=== PATIENT | female | born 1965 | race Caucasian/White ===

== ENCOUNTER → 2018-10-19 | Outpatient (CLI) | payer BC ==
[~2018-10-19] MED LIST: ACET325; ACET325 PO; AMOX500 PO; BENZ100A PO; CELE200 PO; CIPR500 PO; CVS CALCIUM 501 EAC2; DURACEF PO; ERGO50000; ESTR1 PO; ESTR2 PO; ESTROGEN-METHY1 EAC1 PO; ETAN50I SC; Estradiol2 MG PO; FLUT.05NI; Gummi Bear Mul1 EACH; Gummi Bear Mul1 EACH PO; HYDACE5 PO; HYOS.125 SL; IRON236 MG; LEVSOD150 PO; LORA1SY PO; MEGA BIOTIN10000 MCG; META800 PO; METR500 PO; OMEP40CA12 PO; ONDA4ODT MM; OXYACE5T PO; POTCHL20ER; PREG200 PO; PREG25 PO; PREG75 PO; PROM25 PO; PROM25S PR; PSEU120ER PO; QUIN10 PO; RXONDA4ODT MM; SUDAFED PO; VITAMIN B-125000 MCG; VITAMIN B125000 MCG INJ; ZOLP10 PO; Zanaflex4 M1 PO; Zanaflex4 MG PO; Zofran Odt4 MG SL; [UNRECOGNIZED DRUG - OTHER] PO
== END | disposition home or self-care (01) ==
LOC: LAB SHORT 13:00 → LAB 13:00
DX: R30.0 Dysuria (principal)
CPT/HCPCS: 87086

== ENCOUNTER → 2018-10-22 | Outpatient (CLI) | payer BC ==
[~2018-10-22] MED LIST changes: +CYAN1000I IM; +ERGO400 PO; +HYDCOR2.5C PR; +LEVFLO500 PO; +LEVSOD100 PO; +QUIN5 PO; +TIZANIDINE HCL4 MG PO
[2018-10-22 16:10] LABS: BASOPHILS ABSOLUTE AUTO 0.03 K/mm3 (0.00-0.23); BASOPHILS PERCENT AUTO 0 % (0-2); EOSINOPHILS ABSOLUTE AUTO 0.11 K/mm3 (0.00-0.68); EOSINOPHILS PERCENT AUTO 1 % (0-6); Hematocrit 40.4 % (33.0-51.0); Hemoglobin 12.7 g/dL (11.5-16.0); IMMATURE GRAN ABSOLUTE AUTO 0.03 K/mm3 (0.00-0.10); IMMATURE GRAN PERCENT AUTO 0 % (0-1); LYMPHOCYTES ABSOLUTE AUTO 1.79 K/mm3 (0.84-5.20); LYMPHOCYTES PERCENT AUTO 19 % (21-46); MONOCYTES ABSOLUTE AUTO 0.71 K/mm3 (0.16-1.47); MONOCYTES PERCENT AUTO 7 % (4-13); Mean Corpuscular HGB 29.7 pg (26.0-34.0); Mean Corpuscular HGB Conc 31.4 g/dL (31.5-36.5); Mean Corpuscular Volume 94 fL (80-100); Mean Platelet Volume 10.5 fL (9.1-12.4); NEUTROPHILS ABSOLUTE AUTO 6.98 K/mm3 (1.96-9.15); NEUTROPHILS PERCENT AUTO 72 % (41-73); Platelet Count 264 K/mm3 (150-400); RDW Coefficient Variation 12.8 % (11.7-14.2); Red Blood Cell Count 4.28 M/mm3 (3.80-5.20); White Blood Cell Count 9.65 K/mm3 (4.00-11.30)
[2018-10-22 16:19] LABS: Albumin, Blood 3.5 g/dL (3.4-5.0); Albumin/Globulin Ratio 0.9 (0.8-1.8); Bilirubin, Total 0.2 mg/dL (0.1-1.0); Calcium, Blood 9.1 mg/dL (8.5-10.1); Creatinine, Blood 1.53 mg/dL (0.40-1.00); Globulin, Blood 3.9 g/dL (2.2-4.0); Total Protein, Blood 7.4 g/dL (6.4-8.2)
== END | disposition home or self-care (01) ==
LOC: LAB 16:01 → LAB SHORT 16:01
DX: R10.84 Generalized abdominal pain (principal)
CPT/HCPCS: 80053; 85025

== ENCOUNTER → 2019-04-23 | Outpatient (CLI) | payer BC ==
[2019-04-23 13:09] LABS: Source, Urine Clean Catch
[2019-04-23 13:16] LABS: BASOPHILS ABSOLUTE AUTO 0.02 K/mm3 (0.00-0.23); BASOPHILS PERCENT AUTO 0 % (0-2); EOSINOPHILS ABSOLUTE AUTO 0.07 K/mm3 (0.00-0.68); EOSINOPHILS PERCENT AUTO 1 % (0-6); Hematocrit 40.5 % (33.0-51.0); Hemoglobin 13.1 g/dL (11.5-16.0); IMMATURE GRAN ABSOLUTE AUTO 0.02 K/mm3 (0.00-0.10); IMMATURE GRAN PERCENT AUTO 0 % (0-1); LYMPHOCYTES ABSOLUTE AUTO 2.58 K/mm3 (0.84-5.20); LYMPHOCYTES PERCENT AUTO 34 % (21-46); MONOCYTES PERCENT AUTO 8 % (4-13); Mean Corpuscular HGB 30.2 pg (26.0-34.0); Mean Corpuscular HGB Conc 32.3 g/dL (31.5-36.5); Mean Corpuscular Volume 93 fL (80-100); Mean Platelet Volume 10.5 fL (9.1-12.4); NEUTROPHILS ABSOLUTE AUTO 4.27 K/mm3 (1.96-9.15); NEUTROPHILS PERCENT AUTO 57 % (41-73); Platelet Count 229 K/mm3 (150-400); RDW Coefficient Variation 12.7 % (11.7-14.2); RDW Standard Deviation 43.8 fL (35.1-46.3); Red Blood Cell Count 4.34 M/mm3 (3.80-5.20); White Blood Cell Count 7.56 K/mm3 (4.00-11.30)
[2019-04-23 13:17] LABS: Bilirubin, Urine Neg (Neg); Blood, Urine Neg (Neg); Glucose Qualitative, Urine Neg (Neg); Ketones, Urine Neg (Neg); Leukocyte Esterase, Urine Neg (Neg); Nitrite, Urine Neg (Neg); Protein, Urine Neg (Neg); Urobilinogen, Urine NORM (Normal)
[2019-04-23 13:23] LABS: Appearance, Urine Clear (Clear); Color, Urine Yellow (P-Yellow)
[2019-04-23 13:44] LABS: Alanine Aminotransfer (ALT/SGP 20 U/L (12-78); Albumin, Blood 3.9 g/dL (3.4-5.0); Albumin/Globulin Ratio 1.2 (0.8-1.8); Alk Phos 68 U/L (50-136); Anion Gap 10 mmol/L (6-16); Aspartate Aminotrans (AST/SGOT 21 U/L (12-37); Bilirubin, Total 0.5 mg/dL (0.1-1.0); Blood Urea Nitrogen 11 mg/dL (8-24); Bun/Creatinine Ratio 14.5 (12.0-20.0); C-REACTIVE PROTEIN, EXT RANGE <0.290 mg/dL (0.000-0.300); CO2, Blood 22 mmol/L (21-32); Calcium, Blood 9.1 mg/dL (8.5-10.1); Chloride, Blood 106 mmol/L (98-108); Creatinine, Blood 0.76 mg/dL (0.40-1.00); Globulin, Blood 3.3 g/dL (2.2-4.0); Glomerular Filtration Rate >60 (60-); Glucose, Blood 82 mg/dL (70-99); Sodium, Blood 138 mmol/L (136-145); Total Protein, Blood 7.2 g/dL (6.4-8.2)
== END | disposition home or self-care (01) ==
LOC: LAB SHORT 13:03 → LAB 13:03
PROVIDERS: Internal Medicine Rheumatology
DX: M45.0 Ankylosing spondylitis of multiple sites in spine (principal)
CPT/HCPCS: 80053; 81003; 85025; 85651; 86140

== ENCOUNTER 2019-06-19 06:41 | Day surgery (SDC) | payer BC ==
[~2019-06-19] VITALS: Ht 177.8 cm; Wt 217.4 kg
[~2019-06-19 06:41] MED LIST changes: +ADAL40PEN
--- NOTE | 2019-06-19 07:23 | NUR ---
06/19/19 0723 Kim Roe 2 IV MISS IN RFA BY LIANA VALVE 1 GOOD IV IN RAC BY RN PT TOW
== END 2019-06-19 09:44 | disposition home or self-care (01) ==
LOC: ORSCSDS 06:41
DX: K22.70 Barrett's esophagus without dysplasia (principal); K44.9 Diaphragmatic hernia without obstruction or gangrene; Z12.11 Encounter for screening for malignant neoplasm of colon; Z86.010 Personal history of colon polyps; K57.30 Diverticulosis of large intestine without perforation or abscess without bleeding; K64.8 Other hemorrhoids; E06.3 Autoimmune thyroiditis; I10 Essential (primary) hypertension; E88.81 Metabolic syndrome and other insulin resistance; Z79.899 Other long term (current) drug therapy
CPT/HCPCS: 43239; G0105; 88305; J0330; J0461; J2405; J2704; J7120

== ENCOUNTER 2019-11-13 14:36 | Day surgery (SDC) | payer BC ==
--- NOTE | 2019-11-13 15:17 | NUR ---
LABS DRAWN FROM [facility]. PT VOIDED, CLEAN CATCH UA. SPECIMENS HAND CARRIED TO LAB.
[2019-11-13 15:25] LABS: Hematocrit 39.3 % (33.0-51.0); Hemoglobin 12.5 g/dL (11.5-16.0); Mean Corpuscular HGB Conc 31.8 g/dL (31.5-36.5); Mean Corpuscular Volume 95 fL (80-100); Mean Platelet Volume 9.9 fL (9.1-12.4); Platelet Count 230 K/mm3 (150-400); RDW Coefficient Variation 13.2 % (11.7-14.2); RDW Standard Deviation 45.7 fL (35.1-46.3); Red Blood Cell Count 4.16 M/mm3 (3.80-5.20); White Blood Cell Count 7.51 K/mm3 (4.00-11.30)
[2019-11-13 15:44] LABS: C-REACTIVE PROTEIN, EXT RANGE <0.290 mg/dL (0.000-0.300); Thyroxine (T4) 18.3 ug/dL (4.8-13.9)
[2019-11-13 15:49] LABS: Alanine Aminotransfer (ALT/SGP 16 U/L (12-78); Albumin, Blood 3.6 g/dL (3.4-5.0); Albumin/Globulin Ratio 1.1 (0.8-1.8); Alk Phos 76 U/L (50-136); Anion Gap 3 mmol/L (6-16); Aspartate Aminotrans (AST/SGOT 13 U/L (12-37); Bilirubin, Total 0.3 mg/dL (0.1-1.0); Blood Urea Nitrogen 13 mg/dL (8-24); Bun/Creatinine Ratio 15.8 (12.0-20.0); CO2, Blood 25 mmol/L (21-32); Calcium, Blood 8.5 mg/dL (8.5-10.1); Chloride, Blood 110 mmol/L (98-108); Creatinine, Blood 0.82 mg/dL (0.40-1.00); Globulin, Blood 3.3 g/dL (2.2-4.0); Glomerular Filtration Rate >60 (60-); Glucose, Blood 124 mg/dL (70-99); Potassium, Blood 3.8 mmol/L (3.5-5.5); Sodium, Blood 138 mmol/L (136-145); Total Protein, Blood 6.9 g/dL (6.4-8.2)
[2019-11-13 16:06] LABS: Thyroid Stimulating Hormone 0.509 uIU/mL (0.360-4.800); Triiodothyronine, Free 2.58 pg/mL (2.18-3.98)
== END 2019-11-13 15:15 | disposition home or self-care (01) ==
LOC: ATC 14:36 → LAB 14:36
PROVIDERS: Internal Medicine Rheumatology
DX: M45.0 Ankylosing spondylitis of multiple sites in spine (principal); Z79.899 Other long term (current) drug therapy
CPT/HCPCS: 36415; 80053; 82306; 82607; 84436; 84443; 84481; 85027; 85651; 86140; 99211

== ENCOUNTER → 2021-02-03 | Outpatient (CLI) | payer BC | END | disposition home or self-care (01) | LOC: LAB 12:30 → LAB SHORT 12:30 | DX: R30.0 Dysuria (principal) | CPT/HCPCS: 87086 ==

== ENCOUNTER 2021-11-17 08:37 | Emergency (ER) | payer BC ==
[~2021-11-17] VITALS: Ht 175.3 cm; Wt 102.1 kg
[2021-11-17 09:31] LABS: BASOPHILS ABSOLUTE AUTO 0.05 K/mm3 (0.00-0.23); BASOPHILS PERCENT AUTO 1 % (0-2); EOSINOPHILS ABSOLUTE AUTO 0.14 K/mm3 (0.00-0.68); EOSINOPHILS PERCENT AUTO 1 % (0-6); Hematocrit 41.4 % (33.0-51.0); Hemoglobin 13.8 g/dL (11.5-16.0); IMMATURE GRAN ABSOLUTE AUTO 0.03 K/mm3 (0.00-0.10); IMMATURE GRAN PERCENT AUTO 0 % (0-1); LYMPHOCYTES ABSOLUTE AUTO 2.93 K/mm3 (0.84-5.20); LYMPHOCYTES PERCENT AUTO 30 % (21-46); MONOCYTES ABSOLUTE AUTO 0.76 K/mm3 (0.16-1.47); MONOCYTES PERCENT AUTO 8 % (4-13); Mean Corpuscular HGB 31.7 pg (26.0-34.0); Mean Corpuscular HGB Conc 33.3 g/dL (31.5-36.5); Mean Corpuscular Volume 95 fL (80-100); Mean Platelet Volume 9.6 fL (9.1-12.4); NEUTROPHILS ABSOLUTE AUTO 5.77 K/mm3 (1.96-9.15); NEUTROPHILS PERCENT AUTO 60 % (41-73); Platelet Count 277 K/mm3 (150-400); RDW Coefficient Variation 12.4 % (11.7-14.2); RDW Standard Deviation 43.4 fL (35.1-46.3); Red Blood Cell Count 4.36 M/mm3 (3.80-5.20); White Blood Cell Count 9.68 K/mm3 (4.00-11.30)
[2021-11-17 09:51] LABS: Alanine Aminotransfer (ALT/SGP 18 U/L (12-78); Albumin, Blood 3.7 g/dL (3.4-5.0); Alk Phos 72 U/L (50-136); Anion Gap 9 mmol/L (6-16); Aspartate Aminotrans (AST/SGOT 9 U/L (12-37); Bilirubin, Total 0.4 mg/dL (0.1-1.0); Blood Urea Nitrogen 11 mg/dL (8-24); Bun/Creatinine Ratio 16.1 (12.0-20.0); CO2, Blood 21 mmol/L (21-32); Calcium, Blood 8.9 mg/dL (8.5-10.1); Chloride, Blood 107 mmol/L (98-108); Creatinine, Blood 0.69 mg/dL (0.40-1.00); Globulin, Blood 3.7 g/dL (2.2-4.0); Glomerular Filtration Rate >60 (60-); Glucose, Blood 111 mg/dL (70-99); Potassium, Blood 3.6 mmol/L (3.5-5.5); Sodium, Blood 137 mmol/L (136-145); Total Protein, Blood 7.4 g/dL (6.4-8.2)
[2021-11-17 10:36] LABS: International Normalized Ratio 1.03; Prothrombin Time Results 10.8 Sec (9.7-11.5)
[2021-11-17] MEDS ORDERED: PROM25 PO (13:14)
[2021-11-17] MEDS ORDERED: MECL25 PO (13:14)
[2021-11-17] MEDS ORDERED: ZEBUTAL 50-3251 EAC1 PO (13:14)
== END 2021-11-17 13:24 | disposition home or self-care (01) ==
LOC: ER 08:37
PROVIDERS: Emergency Medicine
DX: R51.9 Headache, unspecified (principal); H54.7 Unspecified visual loss; I10 Essential (primary) hypertension; E03.9 Hypothyroidism, unspecified; K21.9 Gastro-esophageal reflux disease without esophagitis; Z88.5 Allergy status to narcotic agent; Z88.8 Allergy status to other drugs, medicaments and biological substances; Z79.899 Other long term (current) drug therapy
CPT/HCPCS: 36415; 70450; 70551; 80053; 85025; 85610; 85730; 93005; 93010; 96374; 96375; 96376; 99284-25; J1170; J2060; J2550; J7030

== ENCOUNTER 2022-07-03 12:43 | Day surgery (SDC) | payer BC ==
[~2022-07-03] VITALS: Ht 177.8 cm; Wt 107.3 kg
[~2022-07-03 12:43] MED LIST changes: +MECL25 PO; +ZEBUTAL 50-3251 EAC1 PO
--- NOTE | 2022-07-03 13:06 | NUR ---
07/03/22 1306 Jael Barton CALL LIGHT WITHIN REACH. ROBERT IN AT 1302 IN RIGHT EYE AND PAM AT 1305
== END 2022-07-03 14:50 | disposition home or self-care (01) ==
LOC: ORSCSDS 12:43
PROVIDERS: Ophthalmology
PROC: 08RJ3JZ Replacement of Right Lens with Synthetic Substitute, Percutaneous Approach (ICD-10-PCS; principal; 2022-07-03 14:00)
DX: H25.11 Age-related nuclear cataract, right eye (principal); H52.201 Unspecified astigmatism, right eye; H52.4 Presbyopia; I10 Essential (primary) hypertension; K21.9 Gastro-esophageal reflux disease without esophagitis; E03.9 Hypothyroidism, unspecified; Z79.899 Other long term (current) drug therapy
CPT/HCPCS: J2001; J2250; J3010; J3301; J7040; V2632

== ENCOUNTER 2022-07-10 14:32 | Day surgery (SDC) | payer BC ==
[~2022-07-10] VITALS: Ht 177.8 cm; Wt 103.3 kg
== END 2022-07-10 16:30 | disposition home or self-care (01) ==
LOC: ORSCSDS 14:32
PROVIDERS: Ophthalmology
PROC: 08RK3JZ Replacement of Left Lens with Synthetic Substitute, Percutaneous Approach (ICD-10-PCS; principal; 2022-07-10 15:30)
DX: H25.12 Age-related nuclear cataract, left eye (principal); H52.4 Presbyopia; I10 Essential (primary) hypertension; J45.909 Unspecified asthma, uncomplicated; E03.9 Hypothyroidism, unspecified; F41.8 Other specified anxiety disorders; Z79.899 Other long term (current) drug therapy
CPT/HCPCS: J2001; J2250; J2405; J3010; J3301; J7040; V2632

== ENCOUNTER 2023-04-10 10:10 | Emergency (ER) | payer BC ==
[~2023-04-10] VITALS: Ht 177.8 cm; Wt 99.8 kg
[2023-04-10 10:58] LABS: BASOPHILS ABSOLUTE AUTO 0.03 K/mm3 (0.00-0.23); BASOPHILS PERCENT AUTO 0 % (0-2); EOSINOPHILS ABSOLUTE AUTO 0.17 K/mm3 (0.00-0.68); EOSINOPHILS PERCENT AUTO 1 % (0-6); Hematocrit 41.9 % (33.0-51.0); Hemoglobin 14.1 g/dL (11.5-16.0); IMMATURE GRAN ABSOLUTE AUTO 0.03 K/mm3 (0.00-0.10); IMMATURE GRAN PERCENT AUTO 0 % (0-1); LYMPHOCYTES ABSOLUTE AUTO 2.39 K/mm3 (0.84-5.20); LYMPHOCYTES PERCENT AUTO 17 % (21-46); MONOCYTES ABSOLUTE AUTO 0.94 K/mm3 (0.16-1.47); MONOCYTES PERCENT AUTO 7 % (4-13); Mean Corpuscular HGB Conc 33.7 g/dL (31.5-36.5); Mean Corpuscular Volume 92 fL (80-100); Mean Platelet Volume 9.7 fL (9.1-12.4); NEUTROPHILS ABSOLUTE AUTO 10.36 K/mm3 (1.96-9.15); NEUTROPHILS PERCENT AUTO 74 % (41-73); Platelet Count 293 K/mm3 (150-400); Red Blood Cell Count 4.55 M/mm3 (3.80-5.20); White Blood Cell Count 13.92 K/mm3 (4.00-11.30)
[2023-04-10 11:24] LABS: Albumin, Blood 3.8 g/dL (3.4-5.0); Albumin/Globulin Ratio 1.2 (0.8-1.8); Bilirubin, Total 0.4 mg/dL (0.1-1.0); Bun/Creatinine Ratio 15.6 (12.0-20.0); Calcium, Blood 9.2 mg/dL (8.5-10.1); Creatinine, Blood 0.84 mg/dL (0.40-1.00); Globulin, Blood 3.2 g/dL (2.2-4.0); Potassium, Blood 3.8 mmol/L (3.5-5.5)
[2023-04-10] MEDS ORDERED: ENBREL50 MG/1 M2 SQ (13:43)
[2023-04-10] MEDS ORDERED: Prinivil10 MG PO (13:44)
[2023-04-10] MEDS ORDERED: CIMZIA (14:01)
[2023-04-10] MEDS ORDERED: METO10 PO (15:25)
[2023-04-10] MEDS ORDERED: MECL25 PO (15:25)
[2023-04-10] MEDS ORDERED: ONDA4ODT MM (15:25)
[2023-04-10 16:25] VITALS: BP 148/78
== END 2023-04-10 16:29 | disposition home or self-care (01) ==
LOC: ER 10:10
PROVIDERS: Physician Assistant
DX: I49.3 Ventricular premature depolarization (principal); R42 Dizziness and giddiness; R11.0 Nausea; Z88.5 Allergy status to narcotic agent; Z88.8 Allergy status to other drugs, medicaments and biological substances; Z79.890 Hormone replacement therapy; Z79.899 Other long term (current) drug therapy; I10 Essential (primary) hypertension; E03.9 Hypothyroidism, unspecified; K21.9 Gastro-esophageal reflux disease without esophagitis
CPT/HCPCS: 71046; 71260; 80053; 83880; 84484; 85025; 85379; 93005; 93010; 96361; 96374; 96375; 99285-25; J1200; J2405; J2765; J7030; Q9967

== ENCOUNTER → 2023-05-10 | Outpatient (CLI) | payer BC ==
[~2023-05-10] MED LIST changes: +CIMZIA; +ENBREL50 MG/1 M2 SQ; +METO10 PO; +Prinivil10 MG PO
== END | disposition home or self-care (01) ==
LOC: LAB 17:38 → LAB SHORT 17:38
DX: R30.0 Dysuria (principal)
CPT/HCPCS: 87077; 87086; 87186

== ENCOUNTER 2024-03-09 04:31 | Day surgery (SDC) | payer BC ==
[~2024-03-09] VITALS: Wt 104.2 kg
[~2024-03-09 04:31] MED LIST changes: +ALORA1 EA10 TOP; +ESTRADIOL1 MG PO; +FOLI1 PO; +LEUCOVORIN CALC PO; +METO25ER PO; +PROG100 PO
[2024-03-09] MEDS ORDERED: Infliximab-DYYB 300 MG in NS 250 ML IV SCH (06:00)
[2024-03-09] MEDS ORDERED: Loratadine 10 MG Tab PO SCH (07:05)
[2024-03-09] MEDS ORDERED: Acetaminophen 325 MG TABLET PO SCH (07:05)
[2024-03-09] MEDS ORDERED: MethylPREDNISolone Sod Succ 125 MG Vial IV SCH (07:05)
[2024-03-09] MEDS ORDERED: Famotidine 20 MG Tab PO SCH (07:05)
[2024-03-09] MEDS ORDERED: DiphenhydrAMINE HCL 25 MG Cap PO SCH (07:05)
[2024-03-09 07:42] VITALS: BP 108/64
[2024-03-09 08:24] LABS: Source, Urine Clean Catch
[2024-03-09 08:27] LABS: BASOPHILS ABSOLUTE AUTO 0.05 K/mm3 (0.00-0.23); BASOPHILS PERCENT AUTO 1 % (0-2); EOSINOPHILS ABSOLUTE AUTO 0.09 K/mm3 (0.00-0.68); EOSINOPHILS PERCENT AUTO 1 % (0-6); Hematocrit 39.3 % (33.0-51.0); Hemoglobin 12.8 g/dL (11.5-16.0); IMMATURE GRAN ABSOLUTE AUTO 0.05 K/mm3 (0.00-0.10); IMMATURE GRAN PERCENT AUTO 1 % (0-1); LYMPHOCYTES ABSOLUTE AUTO 2.96 K/mm3 (0.84-5.20); LYMPHOCYTES PERCENT AUTO 31 % (21-46); MONOCYTES ABSOLUTE AUTO 0.57 K/mm3 (0.16-1.47); MONOCYTES PERCENT AUTO 6 % (4-13); Mean Corpuscular HGB 30.5 pg (26.0-34.0); Mean Corpuscular HGB Conc 32.6 g/dL (31.5-36.5); Mean Corpuscular Volume 94 fL (80-100); Mean Platelet Volume 9.3 fL (9.1-12.4); NEUTROPHILS ABSOLUTE AUTO 5.72 K/mm3 (1.96-9.15); NEUTROPHILS PERCENT AUTO 61 % (41-73); Platelet Count 277 K/mm3 (150-400); RDW Coefficient Variation 13.5 % (11.7-14.2); RDW Standard Deviation 45.9 fL (35.1-46.3); White Blood Cell Count 9.44 K/mm3 (4.00-11.30)
[2024-03-09 09:05] LABS: Appearance, Urine Clear (Clear); Bilirubin, Urine Neg (Neg); Blood, Urine Neg (Neg); Color, Urine Yellow (P-Yellow); Glucose Qualitative, Urine Neg (Neg); Ketones, Urine Neg (Neg); Leukocyte Esterase, Urine Neg (Neg); Nitrite, Urine Neg (Neg); Protein, Urine Neg (Neg); Specific Gravity, Urine 1.025 (1.003-1.022); Urobilinogen, Urine NORM (Normal)
[2024-03-09 09:19] LABS: Ferritin, Serum 53 ng/mL (8-252); Iron Serum 84 ug/dL (50-170); Percent Saturation 23.7 % (15.0-50.0); Total Iron Binding Capacity 354 ug/dL (250-450)
[2024-03-09 09:20] LABS: Alanine Aminotransfer (ALT/SGP 17 U/L (12-78); Albumin, Blood 3.3 g/dL (3.4-5.0); Alk Phos 61 U/L (50-136); Anion Gap 11 mmol/L (3-11); Aspartate Aminotrans (AST/SGOT 10 U/L (12-37); Bilirubin, Direct <0.1 mg/dL (0.0-0.3); Bilirubin, Indirect Unable to Calculate mg/dL (0.1-0.7); Bilirubin, Total 0.4 mg/dL (0.1-1.0); Blood Urea Nitrogen 13 mg/dL (8-24); Bun/Creatinine Ratio 17.2 (12.0-20.0); CO2, Blood 21 mmol/L (21-32); Calcium, Blood 8.2 mg/dL (8.5-10.1); Chloride, Blood 111 mmol/L (98-108); Creatinine, Blood 0.76 mg/dL (0.40-1.00); Globulin, Blood 3.4 g/dL (2.2-4.0); Glomerular Filtration Rate 90 (60-); Glucose, Blood 106 mg/dL (70-99); Phosphorus, Blood 3.2 mg/dL (2.5-4.9); Sodium, Blood 139 mmol/L (136-145); Total Protein, Blood 6.7 g/dL (6.4-8.2)
[2024-03-10 21:13] LABS: MYELOPEROXIDASE (MPO) AB,IGG 0 AU/mL (0-19); SERINE PROTEINASE 3 PR3 AB,IGG 1 AU/mL (0-19)
[2024-03-11 19:33] LABS: ALBUMIN 3.64 g/dL (3.75-5.01); ALPHA 1 GLOBULIN 0.27 g/dL (0.19-0.46); ALPHA 2 GLOBULIN 0.86 g/dL (0.48-1.05); BETA GLOBULIN 0.81 g/dL (0.48-1.10); GAMMA 0.83 g/dL (0.62-1.51); IMMUNOFIXATION REFLEX Not Done; TOTAL PROTEIN,SERUM 6.4 g/dL (6.3-8.2)
[2024-03-11 20:27] LABS: ANA PATTERN Homogeneous; ANTINUCLEAR AB (ANA),HEP-2,IGG Detected (<1:80)
[2024-03-16 15:05] LABS: HOURS COLLECTED Not Provided hr; TOTAL VOLUME Not Provided mL
== END 2024-03-09 10:48 | disposition home or self-care (01) ==
LOC: ATC 04:31
PROVIDERS: Internal Medicine Nephrology
DX: M06.09 Rheumatoid arthritis without rheumatoid factor, multiple sites (principal); Z88.8 Allergy status to other drugs, medicaments and biological substances
CPT/HCPCS: 80053; 81003; 82248; 82306; 82607; 82728; 82746; 82784; 83516; 83521; 83540; 83550; 83970; 84100; 84155; 84156; 84165; 84166; 84443; 85025; 86039; 86334; 86335; 96375; 96413; 96415; A9270; J2919; J7050; Q5103

== ENCOUNTER 2024-04-12 08:00 | Day surgery (SDC) | payer BC ==
[~2024-04-12 08:00] MED LIST changes: +NS 1,000 ML IV SCH
[2024-04-12 08:03] VITALS: BP 141/91
== END 2024-04-12 09:18 | disposition home or self-care (01) ==
LOC: ATC 08:00
DX: E86.0 Dehydration (principal); I10 Essential (primary) hypertension; Z88.8 Allergy status to other drugs, medicaments and biological substances; Z79.899 Other long term (current) drug therapy
CPT/HCPCS: 96360; J7030

== ENCOUNTER 2024-04-18 01:57 | Day surgery (SDC) | payer BC ==
[~2024-04-18 01:57] MED LIST changes: -NS 1,000 ML IV SCH
[2024-04-18] MEDS ORDERED: NS 1,000 ML IV SCH (06:50)
[2024-04-18 10:15] VITALS: BP 130/80
== END 2024-04-18 11:22 | disposition home or self-care (01) ==
LOC: ATC 01:57
DX: E86.0 Dehydration (principal)
CPT/HCPCS: 96360; J7030

== ENCOUNTER 2024-04-23 09:16 | Day surgery (SDC) | payer BC ==
[2024-04-23] MEDS ORDERED: NS 1,000 ML IV SCH (09:20)
[2024-04-23 11:04] VITALS: BP 142/78
== END 2024-04-23 11:45 | disposition home or self-care (01) ==
LOC: ATC 09:16
DX: E86.0 Dehydration (principal); I10 Essential (primary) hypertension; Z88.8 Allergy status to other drugs, medicaments and biological substances; Z79.899 Other long term (current) drug therapy
CPT/HCPCS: 96360; J7030

== ENCOUNTER 2024-05-05 09:30 | Day surgery (SDC) | payer BC ==
[2024-05-05] MEDS ORDERED: methylPREDNISolone acetate 80 MG/ML 1MLVIAL IM SCH (09:45)
[2024-05-05] MEDS ORDERED: NS 1,000 ML IV SCH (09:50)
[2024-05-05 15:43] VITALS: BP 140/92
== END 2024-05-05 16:45 | disposition home or self-care (01) ==
LOC: ATC 09:30
DX: E86.0 Dehydration (principal); E89.0 Postprocedural hypothyroidism; M06.09 Rheumatoid arthritis without rheumatoid factor, multiple sites; I10 Essential (primary) hypertension; Z79.899 Other long term (current) drug therapy; Z88.8 Allergy status to other drugs, medicaments and biological substances
CPT/HCPCS: 96360; 96372; J7030

== ENCOUNTER 2024-06-03 02:53 | Day surgery (SDC) | payer BC ==
[2024-06-03] MEDS ORDERED: NS 1,000 ML IV SCH ×2 (07:15→13:50)
[2024-06-03 13:41] VITALS: BP 129/75
[2024-06-03 13:48] LABS: BASOPHILS ABSOLUTE AUTO 0.04 K/mm3 (0.00-0.23); BASOPHILS PERCENT AUTO 1 % (0-2); EOSINOPHILS ABSOLUTE AUTO 0.14 K/mm3 (0.00-0.68); EOSINOPHILS PERCENT AUTO 2 % (0-6); Hematocrit 39.5 % (33.0-51.0); Hemoglobin 13.4 g/dL (11.5-16.0); IMMATURE GRAN ABSOLUTE AUTO 0.02 K/mm3 (0.00-0.10); IMMATURE GRAN PERCENT AUTO 0 % (0-1); LYMPHOCYTES ABSOLUTE AUTO 1.98 K/mm3 (0.84-5.20); LYMPHOCYTES PERCENT AUTO 24 % (21-46); MONOCYTES ABSOLUTE AUTO 0.56 K/mm3 (0.16-1.47); MONOCYTES PERCENT AUTO 7 % (4-13); Mean Corpuscular HGB 32.1 pg (26.0-34.0); Mean Corpuscular HGB Conc 33.9 g/dL (31.5-36.5); Mean Corpuscular Volume 95 fL (80-100); Mean Platelet Volume 9.1 fL (9.1-12.4); NEUTROPHILS ABSOLUTE AUTO 5.61 K/mm3 (1.96-9.15); NEUTROPHILS PERCENT AUTO 67 % (41-73); Platelet Count 252 K/mm3 (150-400); RDW Standard Deviation 45.3 fL (35.1-46.3); Red Blood Cell Count 4.17 M/mm3 (3.80-5.20); White Blood Cell Count 8.35 K/mm3 (4.00-11.30)
[2024-06-03 14:07] LABS: Albumin, Blood 3.6 g/dL (3.4-5.0); Albumin/Globulin Ratio 1.1 (0.8-1.8); Bilirubin, Total 0.4 mg/dL (0.1-1.0); Bun/Creatinine Ratio 15.5 (12.0-20.0); Calcium, Blood 8.7 mg/dL (8.5-10.1); Creatinine, Blood 0.78 mg/dL (0.40-1.00); Globulin, Blood 3.3 g/dL (2.2-4.0); Potassium, Blood 3.9 mmol/L (3.5-5.5); Total Protein, Blood 6.9 g/dL (6.4-8.2)
[2024-06-05 15:10] LABS: ANTIBODIES TO INFLIXIMAB QUANT <20 ng/mL; INFLIXIMAB QUANTITATION 4.9 ug/mL
== END 2024-06-03 15:55 | disposition home or self-care (01) ==
LOC: ATC 02:53
PROVIDERS: Internal Medicine Nephrology; Internal Medicine Rheumatology
DX: E86.0 Dehydration (principal); M06.09 Rheumatoid arthritis without rheumatoid factor, multiple sites; K22.70 Barrett's esophagus without dysplasia; I10 Essential (primary) hypertension; Z79.899 Other long term (current) drug therapy; Z88.8 Allergy status to other drugs, medicaments and biological substances
CPT/HCPCS: 80053; 80230; 82397; 85025; 96360; J7030

== ENCOUNTER 2024-06-27 03:47 | Day surgery (SDC) | payer BC ==
[2024-06-27] MEDS ORDERED: NS 1,000 ML IV SCH (07:20)
[2024-06-27] MEDS ORDERED: MethylPREDNISolone Sod Succ 125 MG Vial IV SCH (08:00)
[2024-06-27] MEDS ORDERED: Famotidine 20 MG Tab PO SCH (09:00)
[2024-06-27 13:23] VITALS: BP 141/76
[2024-06-27] MEDS ORDERED: METHOTREXA25 MG/1 M7 SC (13:28)
[2024-06-27] MEDS ORDERED: Infliximab-DYYB 500 MG in NS 250 ML IV SCH (13:55)
--- NOTE | 2024-06-27 14:01 | NUR ---
PT TOOK OWN BENADRYL AND TYLENOL AT HOME.
[2024-06-27 16:43] VITALS: BP 149/87
== END 2024-06-27 16:50 | disposition home or self-care (01) ==
LOC: ATC 03:47
DX: M06.09 Rheumatoid arthritis without rheumatoid factor, multiple sites (principal); I10 Essential (primary) hypertension; Z79.899 Other long term (current) drug therapy; Z88.8 Allergy status to other drugs, medicaments and biological substances; Z86.16 Personal history of COVID-19
CPT/HCPCS: 96361; 96375; 96413; 96415; A9270; J2919; J7030; J7050; Q5103

== ENCOUNTER 2024-07-09 11:25 | Day surgery (SDC) | payer BC ==
[~2024-07-09 11:25] MED LIST changes: +METHOTREXA25 MG/1 M7 SC
[2024-07-09] MEDS ORDERED: Lactated Ringer's 1,000 ML IV SCH ×2 (11:30→13:40)
[2024-07-09 13:27] VITALS: BP 148/91
== END 2024-07-09 15:38 | disposition home or self-care (01) ==
LOC: ATC 11:25
DX: E86.0 Dehydration (principal); N19 Unspecified kidney failure
CPT/HCPCS: 96360; 96361; J7120

== ENCOUNTER 2024-07-15 08:55 | Day surgery (SDC) | payer BC ==
[2024-07-15] MEDS ORDERED: Lactated Ringer's 1,000 ML IV SCH (09:45)
[2024-07-15] MEDS ORDERED: PYRI100 PO (11:59)
[2024-07-15 12:08] LABS: Free Thyroxine 1.35 ng/dL (0.70-1.60); Magnesium, Blood 2.3 mg/dL (1.6-2.4); Thyroid Stimulating Hormone 0.363 uIU/mL (0.360-4.800); Triiodothyronine, Free 2.07 pg/mL (2.18-3.98); Uric Acid, Blood 4.9 mg/dL (2.6-6.0)
[2024-07-15 12:09] LABS: Albumin, Blood 3.9 g/dL (3.4-5.0); Anion Gap 11 mmol/L (3-11); Blood Urea Nitrogen 25 mg/dL (8-24); Bun/Creatinine Ratio 26.4 (12.0-20.0); CO2, Blood 23 mmol/L (21-32); Calcium, Blood 9.7 mg/dL (8.5-10.1); Chloride, Blood 107 mmol/L (98-108); Creatinine, Blood 0.95 mg/dL (0.40-1.00); Glomerular Filtration Rate 69 (60-); Glucose, Blood 117 mg/dL (70-99); Phosphorus, Blood 4.8 mg/dL (2.5-4.9); Potassium, Blood 4.1 mmol/L (3.5-5.5); Sodium, Blood 137 mmol/L (136-145)
[2024-07-17 01:57] LABS: DOUBLE-STRANDED DNA IGG ELISA 46 IU (0-24)
[2024-07-17 04:25] LABS: COMPLEMENT COMPONENT 3 136 mg/dL (90-180); COMPLEMENT COMPONENT 4 26 mg/dL (10-40)
[2024-07-17 07:56] LABS: SMITH (ENA) ANTIBODY, IGG 5 AU/mL (0-40)
[2024-07-19 21:28] LABS: DOUBLESTRAND DNA DSDNA IGG IFA 1:40 (<1:10)
== END 2024-07-15 23:00 | disposition home or self-care (01) ==
LOC: ATC 08:55
PROVIDERS: Internal Medicine Nephrology
DX: E86.0 Dehydration (principal); M06.00 Rheumatoid arthritis without rheumatoid factor, unspecified site; I10 Essential (primary) hypertension; Z79.899 Other long term (current) drug therapy; Z88.8 Allergy status to other drugs, medicaments and biological substances; Z86.16 Personal history of COVID-19
CPT/HCPCS: 80069; 83735; 84439; 84443; 84481; 84550; 85014; 85018; 86160; 86225; 86235; 96360; 96361; J7120

== ENCOUNTER 2024-08-10 09:46 | Day surgery (SDC) | payer BC ==
[~2024-08-10 09:46] MED LIST changes: +PYRI100 PO
[2024-08-10] MEDS ORDERED: Lactated Ringer's 1,000 ML IV SCH (10:25)
[2024-08-10 13:26] VITALS: BP 146/99
== END 2024-08-10 15:41 | disposition home or self-care (01) ==
LOC: ATC 09:46
DX: E86.0 Dehydration (principal); M06.08 Rheumatoid arthritis without rheumatoid factor, vertebrae; Z88.8 Allergy status to other drugs, medicaments and biological substances
CPT/HCPCS: 96360; 96361; J7120

== ENCOUNTER 2024-08-20 05:15 | Day surgery (SDC) | payer BC ==
[~2024-08-20] VITALS: Wt 103.4 kg
[2024-08-20] MEDS ORDERED: Lactated Ringer's 1,000 ML IV SCH ×2 (06:50→11:20)
[2024-08-20] MEDS ORDERED: MethylPREDNISolone Sod Succ 125 MG Vial IV SCH (06:55)
[2024-08-20] MEDS ORDERED: Loratadine 10 MG Tab PO SCH (06:55)
[2024-08-20] MEDS ORDERED: DiphenhydrAMINE HCl 50 MG/ML 1ML Vial IV SCH (06:55)
[2024-08-20] MEDS ORDERED: Acetaminophen 500 MG Tab PO SCH (06:55)
[2024-08-20 07:45] VITALS: BP 132/79
[2024-08-20] MEDS ORDERED: Infliximab-DYYB 500 MG in NS 250 ML IV SCH (08:00)
[2024-08-20] MEDS ORDERED: NYSTATIN100000 U10 MT (08:04)
[2024-08-20] MEDS ORDERED: Famotidine 20 MG Tab PO SCH (09:00)
== END 2024-08-20 12:40 | disposition home or self-care (01) ==
LOC: ATC 05:15
DX: M06.09 Rheumatoid arthritis without rheumatoid factor, multiple sites (principal); E86.0 Dehydration; I10 Essential (primary) hypertension; Z79.899 Other long term (current) drug therapy; Z88.8 Allergy status to other drugs, medicaments and biological substances; Z86.16 Personal history of COVID-19
CPT/HCPCS: 96375; 96413; 96415; A9270; J1200; J2919; J7050; J7120; Q5103

== ENCOUNTER 2024-09-03 09:41 | Day surgery (SDC) | payer BC ==
[~2024-09-03 09:41] MED LIST changes: +NYSTATIN100000 U10 MT
[2024-09-03] MEDS ORDERED: Lactated Ringer's 1,000 ML IV SCH (12:20)
[2024-09-03 14:41] VITALS: BP 162/91
== END 2024-09-03 16:56 | disposition home or self-care (01) ==
LOC: ATC 09:41
DX: E86.0 Dehydration (principal); N17.9 Acute kidney failure, unspecified; E08.9 Diabetes mellitus due to underlying condition without complications; I10 Essential (primary) hypertension; Z88.8 Allergy status to other drugs, medicaments and biological substances
CPT/HCPCS: 96360; J7120

== ENCOUNTER 2024-09-09 02:47 | Day surgery (SDC) | payer BC ==
[2024-09-09] MEDS ORDERED: Lactated Ringer's 1,000 ML IV SCH (07:00)
[2024-09-09 09:05] VITALS: BP 145/69
== END 2024-09-09 10:50 | disposition home or self-care (01) ==
LOC: ATC 02:47
DX: E86.0 Dehydration (principal); M06.0A Rheumatoid arthritis without rheumatoid factor, other specified site; Z79.899 Other long term (current) drug therapy
CPT/HCPCS: J7120

== ENCOUNTER 2024-09-27 12:51 | Day surgery (SDC) | payer BC ==
[2024-09-27] MEDS ORDERED: Lactated Ringer's 1,000 ML IV SCH (13:30)
[2024-09-27 14:15] VITALS: BP 140/74
== END 2024-09-27 16:24 | disposition home or self-care (01) ==
LOC: ATC 12:51
DX: E86.0 Dehydration (principal); M06.09 Rheumatoid arthritis without rheumatoid factor, multiple sites; Z79.899 Other long term (current) drug therapy
CPT/HCPCS: 96360; 96361; J7120

== ENCOUNTER 2024-10-13 00:22 | Day surgery (SDC) | payer BC ==
[2024-10-13] MEDS ORDERED: Lactated Ringer's 1,000 ML IV SCH (07:10)
[2024-10-13 13:45] VITALS: BP 125/95
[2024-10-13 14:00] LABS: BASOPHILS ABSOLUTE AUTO 0.04 K/mm3 (0.00-0.23); BASOPHILS PERCENT AUTO 0 % (0-2); EOSINOPHILS ABSOLUTE AUTO 0.09 K/mm3 (0.00-0.68); EOSINOPHILS PERCENT AUTO 1 % (0-6); Hematocrit 42.6 % (33.0-51.0); Hemoglobin 14.3 g/dL (11.5-16.0); IMMATURE GRAN ABSOLUTE AUTO 0.07 K/mm3 (0.00-0.10); IMMATURE GRAN PERCENT AUTO 1 % (0-1); LYMPHOCYTES PERCENT AUTO 18 % (21-46); MONOCYTES ABSOLUTE AUTO 1.03 K/mm3 (0.16-1.47); MONOCYTES PERCENT AUTO 7 % (4-13); Mean Corpuscular HGB 31.5 pg (26.0-34.0); Mean Corpuscular HGB Conc 33.6 g/dL (31.5-36.5); Mean Corpuscular Volume 94 fL (80-100); Mean Platelet Volume 8.9 fL (9.1-12.4); NEUTROPHILS ABSOLUTE AUTO 10.21 K/mm3 (1.96-9.15); NEUTROPHILS PERCENT AUTO 73 % (41-73); Platelet Count 302 K/mm3 (150-400); RDW Coefficient Variation 12.9 % (11.7-14.2); RDW Standard Deviation 44.6 fL (35.1-46.3); Red Blood Cell Count 4.54 M/mm3 (3.80-5.20); White Blood Cell Count 13.94 K/mm3 (4.00-11.30)
[2024-10-13 14:34] LABS: C-REACTIVE PROTEIN, EXT RANGE <0.290 mg/dL (0.000-0.300)
[2024-10-13 14:37] LABS: Alanine Aminotransfer (ALT/SGP 31 U/L (12-78); Albumin, Blood 3.5 g/dL (3.4-5.0); Albumin/Globulin Ratio 0.9 (0.8-1.8); Alk Phos 61 U/L (50-136); Anion Gap 12 mmol/L (3-11); Aspartate Aminotrans (AST/SGOT 17 U/L (12-37); Bilirubin, Total 0.5 mg/dL (0.1-1.0); Blood Urea Nitrogen 18 mg/dL (8-24); Bun/Creatinine Ratio 23.3 (12.0-20.0); CO2, Blood 22 mmol/L (21-32); Calcium, Blood 8.9 mg/dL (8.5-10.1); Chloride, Blood 105 mmol/L (98-108); Creatinine, Blood 0.77 mg/dL (0.40-1.00); Globulin, Blood 3.7 g/dL (2.2-4.0); Glomerular Filtration Rate 89 (60-); Glucose, Blood 102 mg/dL (70-99); Lactate Dehydrogenase (Ld),Bld 211 U/L (100-240); Potassium, Blood 3.8 mmol/L (3.5-5.5); Sodium, Blood 135 mmol/L (136-145); Total Protein, Blood 7.2 g/dL (6.4-8.2)
== END 2024-10-13 16:03 | disposition home or self-care (01) ==
LOC: ATC 00:22
PROVIDERS: Internal Medicine Rheumatology; Urology
DX: E86.0 Dehydration (principal); N28.89 Other specified disorders of kidney and ureter; I10 Essential (primary) hypertension
CPT/HCPCS: 80053; 83615; 85025; 85651; 86140; 96360; 96361; J7120

== ENCOUNTER 2024-10-28 01:47 | Day surgery (SDC) | payer BC ==
[2024-10-28] MEDS ORDERED: Lactated Ringer's 1,000 ML IV SCH (07:10)
[2024-10-28 14:19] VITALS: BP 134/77
[2024-10-28 15:58] LABS: BASOPHILS ABSOLUTE AUTO 0.04 K/mm3 (0.00-0.23); BASOPHILS PERCENT AUTO 1 % (0-2); EOSINOPHILS ABSOLUTE AUTO 0.11 K/mm3 (0.00-0.68); EOSINOPHILS PERCENT AUTO 1 % (0-6); Hematocrit 39.4 % (33.0-51.0); IMMATURE GRAN ABSOLUTE AUTO 0.04 K/mm3 (0.00-0.10); IMMATURE GRAN PERCENT AUTO 1 % (0-1); LYMPHOCYTES ABSOLUTE AUTO 1.98 K/mm3 (0.84-5.20); LYMPHOCYTES PERCENT AUTO 23 % (21-46); MONOCYTES ABSOLUTE AUTO 0.77 K/mm3 (0.16-1.47); MONOCYTES PERCENT AUTO 9 % (4-13); Mean Corpuscular Volume 94 fL (80-100); Mean Platelet Volume 9.4 fL (9.1-12.4); NEUTROPHILS PERCENT AUTO 66 % (41-73); Platelet Count 304 K/mm3 (150-400); RDW Coefficient Variation 13.1 % (11.7-14.2); RDW Standard Deviation 44.8 fL (35.1-46.3); White Blood Cell Count 8.74 K/mm3 (4.00-11.30)
[2024-10-28 16:21] LABS: Alanine Aminotransfer (ALT/SGP 32 U/L (12-78); Albumin, Blood 3.6 g/dL (3.4-5.0); Alk Phos 62 U/L (50-136); Anion Gap 10 mmol/L (3-11); Aspartate Aminotrans (AST/SGOT 22 U/L (12-37); Bilirubin, Direct 0.2 mg/dL (0.0-0.3); Bilirubin, Indirect 0.4 mg/dL (0.1-0.7); Bilirubin, Total 0.6 mg/dL (0.1-1.0); Blood Urea Nitrogen 15 mg/dL (8-24); Bun/Creatinine Ratio 21.9 (12.0-20.0); CO2, Blood 23 mmol/L (21-32); Calcium, Blood 8.6 mg/dL (8.5-10.1); Chloride, Blood 106 mmol/L (98-108); Creatinine, Blood 0.69 mg/dL (0.40-1.00); Globulin, Blood 3.5 g/dL (2.2-4.0); Glomerular Filtration Rate 100 (60-); Glucose, Blood 90 mg/dL (70-99); Magnesium, Blood 2.3 mg/dL (1.6-2.4); Phosphorus, Blood 3.5 mg/dL (2.5-4.9); Potassium, Blood 3.8 mmol/L (3.5-5.5); Sodium, Blood 135 mmol/L (136-145); Total Protein, Blood 7.1 g/dL (6.4-8.2)
== END 2024-10-28 16:42 | disposition home or self-care (01) ==
LOC: ATC 01:47
PROVIDERS: Internal Medicine Nephrology
DX: E86.0 Dehydration (principal); I10 Essential (primary) hypertension; Z88.8 Allergy status to other drugs, medicaments and biological substances; Z79.899 Other long term (current) drug therapy
CPT/HCPCS: 80053; 82248; 83735; 84100; 85025; 96360; 96361; J7120

== ENCOUNTER 2024-11-04 03:11 | Day surgery (SDC) | payer BC ==
[2024-11-04] MEDS ORDERED: Lactated Ringer's 2,000 ML IV SCH (06:45)
[2024-11-04 13:35] VITALS: BP 131/56
== END 2024-11-04 15:56 | disposition home or self-care (01) ==
LOC: ATC 03:11
DX: E86.0 Dehydration (principal); M06.08 Rheumatoid arthritis without rheumatoid factor, vertebrae; E89.0 Postprocedural hypothyroidism; K22.70 Barrett's esophagus without dysplasia; I10 Essential (primary) hypertension; Z88.8 Allergy status to other drugs, medicaments and biological substances; Z86.16 Personal history of COVID-19
CPT/HCPCS: 96360; 96361; J7120

== ENCOUNTER 2024-11-10 04:05 | Day surgery (SDC) | payer BC ==
[2024-11-10] MEDS ORDERED: Lactated Ringer's 1,000 ML IV SCH (07:10)
[2024-11-10 15:13] VITALS: BP 144/64
== END 2024-11-10 17:16 | disposition home or self-care (01) ==
LOC: ATC 04:05
DX: E86.0 Dehydration (principal); I10 Essential (primary) hypertension; E03.9 Hypothyroidism, unspecified; Z79.899 Other long term (current) drug therapy; Z88.8 Allergy status to other drugs, medicaments and biological substances
CPT/HCPCS: 96360; 96361; J7120

== ENCOUNTER 2024-11-17 04:28 | Day surgery (SDC) | payer BC ==
[2024-11-17] MEDS ORDERED: Lactated Ringer's 1,000 ML IV SCH (07:10)
[2024-11-17 14:58] VITALS: BP 134/55
== END 2024-11-17 18:03 | disposition home or self-care (01) ==
LOC: ATC 04:28
DX: E86.0 Dehydration (principal); N19 Unspecified kidney failure; I10 Essential (primary) hypertension; Z79.899 Other long term (current) drug therapy; Z88.8 Allergy status to other drugs, medicaments and biological substances
CPT/HCPCS: 96360; 96361; J7120

== ENCOUNTER 2024-11-23 07:38 | Day surgery (SDC) | payer BC ==
[~2024-11-23 07:38] MED LIST changes: +Lactated Ringer's 1,000 ML IV SCH
[2024-11-23 07:58] VITALS: BP 136/76
== END 2024-11-23 10:10 | disposition home or self-care (01) ==
LOC: ATC 07:38
DX: E86.0 Dehydration (principal); M06.09 Rheumatoid arthritis without rheumatoid factor, multiple sites; I10 Essential (primary) hypertension; Z88.8 Allergy status to other drugs, medicaments and biological substances; Z79.899 Other long term (current) drug therapy
CPT/HCPCS: 96360; 96361; J7120

== ENCOUNTER 2024-11-29 02:27 | Day surgery (SDC) | payer BC ==
[~2024-11-29 02:27] MED LIST changes: -Lactated Ringer's 1,000 ML IV SCH
[2024-11-29] MEDS ORDERED: Lactated Ringer's 1,000 ML IV SCH (07:20)
[2024-11-29 13:50] VITALS: BP 120/72
== END 2024-11-29 16:05 | disposition home or self-care (01) ==
LOC: ATC 02:27
DX: E86.0 Dehydration (principal); N19 Unspecified kidney failure; I10 Essential (primary) hypertension; Z79.899 Other long term (current) drug therapy; Z88.8 Allergy status to other drugs, medicaments and biological substances
CPT/HCPCS: 96360; 96361; J7120

== ENCOUNTER 2024-12-04 02:42 | Day surgery (SDC) | payer BC ==
[2024-12-04] MEDS ORDERED: Lactated Ringer's 1,000 ML IV SCH (07:05)
[2024-12-04 08:20] VITALS: BP 107/95
== END 2024-12-04 10:58 | disposition home or self-care (01) ==
LOC: ATC 02:42
DX: E86.0 Dehydration (principal); N19 Unspecified kidney failure; M06.08 Rheumatoid arthritis without rheumatoid factor, vertebrae
CPT/HCPCS: 96360; 96361; J7120

== ENCOUNTER 2024-12-16 06:33 | Day surgery (SDC) | payer BC ==
[2024-12-16] MEDS ORDERED: Lactated Ringer's 2,000 ML IV SCH (06:55)
[2024-12-16 11:47] VITALS: BP 166/86
== END 2024-12-16 13:35 | disposition home or self-care (01) ==
LOC: ATC 06:33
DX: E86.0 Dehydration (principal); N19 Unspecified kidney failure; I10 Essential (primary) hypertension; Z79.899 Other long term (current) drug therapy
CPT/HCPCS: 96360; 96361; J7120

== ENCOUNTER 2025-01-26 02:12 | Day surgery (SDC) | payer BC ==
[2025-01-26 14:35] VITALS: BP 118/72
== END 2025-01-26 16:41 | disposition home or self-care (01) ==
LOC: ATC 02:12
DX: E86.0 Dehydration (principal); I12.9 Hypertensive chronic kidney disease with stage 1 through stage 4 chronic kidney disease, or unspecified chronic kidney disease; N18.1 Chronic kidney disease, stage 1; C64.9 Malignant neoplasm of unspecified kidney, except renal pelvis; M06.08 Rheumatoid arthritis without rheumatoid factor, vertebrae; Z79.899 Other long term (current) drug therapy; Z88.8 Allergy status to other drugs, medicaments and biological substances
CPT/HCPCS: 96360; 96361; J7120

== ENCOUNTER 2025-02-04 01:35 | Day surgery (SDC) | payer BC ==
[2025-02-04] MEDS ORDERED: DiphenhydrAMINE HCl 50 MG/ML 1ML Vial IV SCH (06:55)
[2025-02-04] MEDS ORDERED: Infliximab-DYYB 500 MG in NS 250 ML IV SCH (08:25)
[2025-02-04 08:27] VITALS: BP 134/88
[2025-02-04 08:27] LABS: BASOPHILS ABSOLUTE AUTO 0.04 K/mm3 (0.00-0.23); BASOPHILS PERCENT AUTO 1 % (0-2); EOSINOPHILS ABSOLUTE AUTO 0.06 K/mm3 (0.00-0.68); EOSINOPHILS PERCENT AUTO 1 % (0-6); Hematocrit 39.2 % (33.0-51.0); Hemoglobin 12.8 g/dL (11.5-16.0); IMMATURE GRAN ABSOLUTE AUTO 0.03 K/mm3 (0.00-0.10); IMMATURE GRAN PERCENT AUTO 0 % (0-1); LYMPHOCYTES ABSOLUTE AUTO 2.25 K/mm3 (0.84-5.20); LYMPHOCYTES PERCENT AUTO 34 % (21-46); MONOCYTES ABSOLUTE AUTO 0.64 K/mm3 (0.16-1.47); MONOCYTES PERCENT AUTO 10 % (4-13); Mean Corpuscular HGB Conc 32.7 g/dL (31.5-36.5); Mean Corpuscular Volume 94 fL (80-100); NEUTROPHILS ABSOLUTE AUTO 3.68 K/mm3 (1.96-9.15); NEUTROPHILS PERCENT AUTO 55 % (41-73); NRBC ABSOLUTE 0.00 K/mm3 (0.00-0.02); NRBC Auto 0.0 /100 WBC (0.0-0.2); Platelet Count 230 K/mm3 (150-400); RDW Coefficient Variation 13.7 % (11.7-14.2); RDW Standard Deviation 47.2 fL (35.1-46.3)
[2025-02-04 09:28] LABS: Alanine Aminotransfer (ALT/SGP 27 U/L (12-78); Albumin, Blood 3.5 g/dL (3.4-5.0); Albumin/Globulin Ratio 0.9 (0.8-1.8); Anion Gap 5 mmol/L (3-11); Aspartate Aminotrans (AST/SGOT 16 U/L (12-37); Bilirubin, Direct 0.1 mg/dL (0.0-0.3); Bilirubin, Indirect 0.3 mg/dL (0.1-0.7); Bilirubin, Total 0.4 mg/dL (0.1-1.0); Blood Urea Nitrogen 18 mg/dL (8-24); CHOL/HDL RATIO 3.0; CO2, Blood 24 mmol/L (21-32); Calcium, Blood 8.9 mg/dL (8.5-10.1); Chloride, Blood 110 mmol/L (98-108); Cholesterol 200 mg/dL (50-200); Creatinine, Blood 0.85 mg/dL (0.40-1.00); Globulin, Blood 3.7 g/dL (2.2-4.0); Glucose, Blood 87 mg/dL (70-99); HDL Cholesterol 67 mg/dL (>39); LDL/HDL RATIO 1.7; Low Density Lipoprotein Chol 111 mg/dL (0-110); Magnesium, Blood 1.9 mg/dL (1.6-2.4); Potassium, Blood 3.9 mmol/L (3.5-5.5); Sodium, Blood 135 mmol/L (136-145); Thyroid Stimulating Hormone 2.120 uIU/mL (0.360-4.800); Total Iron Binding Capacity 414 ug/dL (250-450); Total Protein, Blood 7.2 g/dL (6.4-8.2); Triglycerides 111 mg/dL (30-160); Very Low Density Lipoprot Chol 22 mg/dL (6-32)
--- NOTE | 2025-02-04 14:22 | NUR ---
LABS FAXED TO DR PALENCIA
== END 2025-02-04 10:45 | disposition home or self-care (01) ==
LOC: ATC 01:35
PROVIDERS: Internal Medicine
DX: M06.09 Rheumatoid arthritis without rheumatoid factor, multiple sites (principal); I10 Essential (primary) hypertension; C64.9 Malignant neoplasm of unspecified kidney, except renal pelvis; Z79.899 Other long term (current) drug therapy; Z88.8 Allergy status to other drugs, medicaments and biological substances
CPT/HCPCS: 80053; 80061; 82248; 82306; 82607; 83036; 83540; 83550; 83735; 84436; 84443; 84481; 85025; 96375; 96413; 96415; A9270; J1200; J2919; J7050; Q5103

== ENCOUNTER 2025-02-06 17:22 | Emergency (ER) | payer BC ==
[~2025-02-06] VITALS: Ht 177.8 cm; Wt 101.6 kg
[2025-02-06 17:31] VITALS: BP 177/130
[2025-02-06] MEDS ORDERED: HYDROmorphone HCl/Pf 1MG SYR IV ONE ×2 (17:45→18:10)
[2025-02-06] MEDS ORDERED: Prochlorperazine Edisylate 10 mg Vial IV ONE (17:45)
[2025-02-06] MEDS ORDERED: DiphenhydrAMINE HCl 50 MG/ML 1ML Vial IV ONE (17:45)
[2025-02-06] MEDS ORDERED: RX Prepack 6 Tabs Oxycodone 5mg UD ONE ×2 (21:10)
[2025-02-06] MEDS ORDERED: Ketorolac Tromethamine 15mg Vial IV ONE (21:10)
[2025-02-06] MEDS ORDERED: RX Prepack 2 Sprays Naloxone HCL 4 MG/SPRAY UD ONE (21:10)
[2025-02-06] MEDS ORDERED: PROC5 PO (21:28)
[2025-02-06] MEDS ORDERED: Percocet 5-3251 EACH PO (21:28)
[2025-02-06] MEDS ORDERED: DIAZ5 PO (21:28)
== END 2025-02-06 22:08 | disposition home or self-care (01) ==
LOC: ER 17:22
DX: S76.311A Strain of muscle, fascia and tendon of the posterior muscle group at thigh level, right thigh, initial encounter (principal); I10 Essential (primary) hypertension; K21.9 Gastro-esophageal reflux disease without esophagitis; Z90.711 Acquired absence of uterus with remaining cervical stump; X58.XXXA Exposure to other specified factors, initial encounter
CPT/HCPCS: 73502; 73562-RT; 76882; 96374; 96375; 99284-25; A9270; J0780; J1171; J1200; J1885

== ENCOUNTER 2025-02-09 08:36 | Day surgery (SDC) | payer BC ==
[~2025-02-09 08:36] MED LIST changes: +DIAZ5 PO; +PROC5 PO; +Percocet 5-3251 EACH PO
[2025-02-09] MEDS ORDERED: OXYC5 PO (13:42)
[2025-02-09] MEDS ORDERED: DIAZ5 PO (13:42)
[2025-02-09 13:45] VITALS: BP 136/93
== END 2025-02-09 16:05 | disposition home or self-care (01) ==
LOC: ATC 08:36
DX: E86.0 Dehydration (principal); I12.9 Hypertensive chronic kidney disease with stage 1 through stage 4 chronic kidney disease, or unspecified chronic kidney disease; N18.1 Chronic kidney disease, stage 1; M06.08 Rheumatoid arthritis without rheumatoid factor, vertebrae; Z79.899 Other long term (current) drug therapy; Z88.8 Allergy status to other drugs, medicaments and biological substances
CPT/HCPCS: 96360; 96361; J7120

== ENCOUNTER 2025-02-19 02:55 | Day surgery (SDC) | payer BC ==
[~2025-02-19 02:55] MED LIST changes: +OXYC5 PO
[2025-02-19 07:40] VITALS: BP 141/92
== END 2025-02-19 09:50 | disposition home or self-care (01) ==
LOC: ATC 02:55
DX: E86.0 Dehydration (principal); I12.9 Hypertensive chronic kidney disease with stage 1 through stage 4 chronic kidney disease, or unspecified chronic kidney disease; N18.1 Chronic kidney disease, stage 1; E89.0 Postprocedural hypothyroidism; C64.9 Malignant neoplasm of unspecified kidney, except renal pelvis; M19.90 Unspecified osteoarthritis, unspecified site; Z79.890 Hormone replacement therapy; Z79.899 Other long term (current) drug therapy; Z88.8 Allergy status to other drugs, medicaments and biological substances
CPT/HCPCS: 96360; 96361; J7120

== ENCOUNTER 2025-02-22 00:40 | Day surgery (SDC) | payer BC ==
[2025-02-22 08:04] VITALS: BP 149/87
== END 2025-02-22 10:23 | disposition home or self-care (01) ==
LOC: ATC 00:40
DX: E86.0 Dehydration (principal); I12.9 Hypertensive chronic kidney disease with stage 1 through stage 4 chronic kidney disease, or unspecified chronic kidney disease; N18.1 Chronic kidney disease, stage 1; E89.0 Postprocedural hypothyroidism; C64.9 Malignant neoplasm of unspecified kidney, except renal pelvis; M06.08 Rheumatoid arthritis without rheumatoid factor, vertebrae; Z79.890 Hormone replacement therapy; Z79.899 Other long term (current) drug therapy; Z88.8 Allergy status to other drugs, medicaments and biological substances
CPT/HCPCS: 96360; 96361; J7120

== ENCOUNTER 2025-02-28 03:16 | Day surgery (SDC) | payer BC ==
[2025-02-28 14:20] VITALS: BP 125/62
== END 2025-02-28 16:35 | disposition home or self-care (01) ==
LOC: ATC 03:16
DX: E86.0 Dehydration (principal); N18.1 Chronic kidney disease, stage 1; I12.9 Hypertensive chronic kidney disease with stage 1 through stage 4 chronic kidney disease, or unspecified chronic kidney disease; M06.09 Rheumatoid arthritis without rheumatoid factor, multiple sites; Z88.8 Allergy status to other drugs, medicaments and biological substances; Z79.899 Other long term (current) drug therapy
CPT/HCPCS: 96360; 96361; J7120

== ENCOUNTER 2025-03-18 02:35 | Day surgery (SDC) | payer BC ==
[2025-03-18 09:25] VITALS: BP 151/90
== END 2025-03-18 11:52 | disposition home or self-care (01) ==
LOC: ATC 02:35
DX: E86.0 Dehydration (principal); I12.9 Hypertensive chronic kidney disease with stage 1 through stage 4 chronic kidney disease, or unspecified chronic kidney disease; N18.1 Chronic kidney disease, stage 1; M45.9 Ankylosing spondylitis of unspecified sites in spine; Z79.899 Other long term (current) drug therapy; Z88.5 Allergy status to narcotic agent
CPT/HCPCS: 96360; 96361; J7120

== ENCOUNTER 2025-03-22 00:44 | Day surgery (SDC) | payer BC ==
[~2025-03-22] VITALS: Wt 101.8 kg
[2025-03-22] MEDS ORDERED: DiphenhydrAMINE HCl 50 MG/ML 1ML Vial IV SCH (06:55)
[2025-03-22 08:10] VITALS: BP 144/81
[2025-03-22] MEDS ORDERED: Infliximab-DYYB 500 MG in NS 250 ML IV SCH (08:25)
[2025-03-22 08:44] LABS: Anion Gap 10.0 mmol/L (3-11); Blood Urea Nitrogen 14.0 mg/dL (8-24); CO2, Blood 22.0 mmol/L (21-32); Calcium, Blood 9.5 mg/dL (8.5-10.1); Chloride, Blood 108.0 mmol/L (98-108); Creatinine, Blood 0.79 mg/dL (0.40-1.00); Glucose, Blood 96.0 mg/dL (70-99); Potassium, Blood 4.4 mmol/L (3.5-5.5); Sodium, Blood 136.0 mmol/L (136-145)
== END 2025-03-22 11:11 | disposition home or self-care (01) ==
LOC: ATC 00:44
PROVIDERS: Urology
DX: M06.09 Rheumatoid arthritis without rheumatoid factor, multiple sites (principal); I10 Essential (primary) hypertension; Z79.899 Other long term (current) drug therapy
CPT/HCPCS: 80048; 96375; 96413; 96415; A9270; J1200; J7050; Q5103

== ENCOUNTER 2025-04-04 16:19 | Emergency (ER) | payer BC ==
[~2025-04-04] VITALS: Ht 177.8 cm; Wt 101.6 kg
[2025-04-04 16:56] LABS: Source, Urine Clean Catch
[2025-04-04 16:58] LABS: Bilirubin, Urine Neg (Neg); Glucose Qualitative, Urine Neg (Neg); Ketones, Urine Neg (Neg); Leukocyte Esterase, Urine Neg (Neg); Protein, Urine Neg (Neg); Specific Gravity, Urine 1.015 (1.003-1.022); Urobilinogen, Urine NORM (Normal)
[2025-04-04 17:15] LABS: BASOPHILS ABSOLUTE AUTO 0.05 K/mm3 (0.00-0.23); BASOPHILS PERCENT AUTO 0 % (0-2); EOSINOPHILS ABSOLUTE AUTO 0.02 K/mm3 (0.00-0.68); EOSINOPHILS PERCENT AUTO 0 % (0-6); Hematocrit 40.7 % (33.0-51.0); Hemoglobin 13.6 g/dL (11.5-16.0); IMMATURE GRAN ABSOLUTE AUTO 0.05 K/mm3 (0.00-0.10); IMMATURE GRAN PERCENT AUTO 0 % (0-1); LYMPHOCYTES ABSOLUTE AUTO 1.67 K/mm3 (0.84-5.20); LYMPHOCYTES PERCENT AUTO 12 % (21-46); MONOCYTES ABSOLUTE AUTO 0.98 K/mm3 (0.16-1.47); MONOCYTES PERCENT AUTO 7 % (4-13); Mean Corpuscular HGB Conc 33.4 g/dL (31.5-36.5); Mean Corpuscular Volume 90 fL (80-100); NEUTROPHILS ABSOLUTE AUTO 11.47 K/mm3 (1.96-9.15); NEUTROPHILS PERCENT AUTO 81 % (41-73); NRBC ABSOLUTE 0.00 K/mm3 (0.00-0.02); NRBC Auto 0.0 /100 WBC (0.0-0.2); Platelet Count 289 K/mm3 (150-400); RDW Coefficient Variation 13.1 % (11.7-14.2); RDW Standard Deviation 42.9 fL (35.1-46.3)
[2025-04-04 17:16] LABS: Color, Urine Yellow (P-Yellow)
[2025-04-04 17:30] LABS: Alanine Aminotransfer (ALT/SGP 25.0 U/L (12-78); Albumin, Blood 3.6 g/dL (3.4-5.0); Albumin/Globulin Ratio 0.9 (0.8-1.8); Anion Gap 11.0 mmol/L (3-11); Aspartate Aminotrans (AST/SGOT 31.0 U/L (12-37); Bilirubin, Total 0.5 mg/dL (0.1-1.0); Blood Urea Nitrogen 13.0 mg/dL (8-24); CO2, Blood 21.0 mmol/L (21-32); Calcium, Blood 9.1 mg/dL (8.5-10.1); Chloride, Blood 104.0 mmol/L (98-108); Creatinine, Blood 0.82 mg/dL (0.40-1.00); Globulin, Blood 4.1 g/dL (2.2-4.0); Glucose, Blood 118.0 mg/dL (70-99); Potassium, Blood 3.6 mmol/L (3.5-5.5); Sodium, Blood 132.0 mmol/L (136-145); Total Protein, Blood 7.7 g/dL (6.4-8.2)
[2025-04-04] MEDS ORDERED: Prochlorperazine Edisylate 10 mg Vial IV ONE (17:30)
[2025-04-04] MEDS ORDERED: HYDROmorphone HCl/Pf 1MG SYR IV ONE (19:10)
[2025-04-04] MEDS ORDERED: DiphenhydrAMINE HCl 50 MG/ML 1ML Vial IV ONE (19:30)
[2025-04-04 20:52] LABS: C-REACTIVE PROTEIN, EXT RANGE 1.32 mg/dL (0.000-0.300)
[2025-04-04 20:59] LABS: Influenza A, PCR NEGATIVE (NEGATIVE); Influenza B, PCR NEGATIVE (NEGATIVE); Resp Syncytial Virus, PCR NEGATIVE (NEGATIVE); SARS-Cov-2 (COVID-19) PCR, MMC NEGATIVE (NEGATIVE)
[2025-04-04] MEDS ORDERED: CefTRIAXone Sodium 1,000 MG in NS 100 ML IV ONE (22:00)
[2025-04-04] MEDS ORDERED: Vancomycin (Pharmacy Consult) IV PRN (22:00)
[2025-04-04 23:30] VITALS: BP 136/68
== END 2025-04-04 23:45 | disposition short-term general hospital (02) ==
LOC: ER 16:19
PROVIDERS: Emergency Medicine; Student in an Organized Health Care Education/Training Program
DX: A41.9 Sepsis, unspecified organism (principal); E87.1 Hypo-osmolality and hyponatremia; L02.415 Cutaneous abscess of right lower limb; K52.9 Noninfective gastroenteritis and colitis, unspecified; M06.9 Rheumatoid arthritis, unspecified; I10 Essential (primary) hypertension; E03.9 Hypothyroidism, unspecified; Z98.890 Other specified postprocedural states; Z88.5 Allergy status to narcotic agent; Z79.890 Hormone replacement therapy; Z79.631 Long term (current) use of antimetabolite agent; Z79.899 Other long term (current) drug therapy; Z88.8 Allergy status to other drugs, medicaments and biological substances
CPT/HCPCS: 36415; 73701; 74177; 80053; 81003; 83605; 84145; 85025; 85651; 86140; 87040; 87637; 96361; 96365-59; 96375-59; 99284-25; J0696; J0780; J1171; J1200; J3373; J7040; J7120; Q9967

== ENCOUNTER 2025-04-28 00:56 | Day surgery (SDC) | payer BC ==
[2025-04-28] MEDS ORDERED: DiphenhydrAMINE HCl 50 MG/ML 1ML Vial IV SCH (06:45)
[2025-04-28 08:06] VITALS: BP 165/81
[2025-04-28] MEDS ORDERED: Infliximab-DYYB 500 MG in NS 250 ML IV SCH (08:20)
== END 2025-04-28 10:42 | disposition home or self-care (01) ==
LOC: ATC 00:56
DX: M06.09 Rheumatoid arthritis without rheumatoid factor, multiple sites (principal); I10 Essential (primary) hypertension; C64.9 Malignant neoplasm of unspecified kidney, except renal pelvis; Z86.16 Personal history of COVID-19; Z88.8 Allergy status to other drugs, medicaments and biological substances
CPT/HCPCS: 96375; 96413; 96415; A9270; J1200; J7050; Q5103

== ENCOUNTER 2025-06-03 08:16 | Day surgery (SDC) | payer BC ==
[2025-06-03] MEDS ORDERED: NS 1,000 ML IV SCH (08:45)
[2025-06-03 09:40] VITALS: BP 166/89
== END 2025-06-03 11:29 | disposition home or self-care (01) ==
LOC: ATC 08:16
DX: E86.9 Volume depletion, unspecified (principal); N18.9 Chronic kidney disease, unspecified; M06.09 Rheumatoid arthritis without rheumatoid factor, multiple sites; I12.9 Hypertensive chronic kidney disease with stage 1 through stage 4 chronic kidney disease, or unspecified chronic kidney disease; Z88.8 Allergy status to other drugs, medicaments and biological substances
CPT/HCPCS: 96360; 96361; J7030

== ENCOUNTER 2025-06-09 00:19 | Day surgery (SDC) | payer BC ==
[~2025-06-09] VITALS: Wt 102.0 kg
[2025-06-09] MEDS ORDERED: DiphenhydrAMINE HCl 50 MG/ML 1ML Vial IV SCH (07:00)
[2025-06-09 09:03] VITALS: BP 160/102
[2025-06-09] MEDS ORDERED: Infliximab-DYYB 500 MG in NS 250 ML IV SCH (09:15)
[2025-06-09 09:31] LABS: Hematocrit 39.6 % (33.0-51.0); Hemoglobin 12.8 g/dL (11.5-16.0); Mean Corpuscular HGB Conc 32.3 g/dL (31.5-36.5); Mean Corpuscular Volume 89 fL (80-100); NRBC ABSOLUTE 0.00 K/mm3 (0.00-0.02); NRBC Auto 0.0 /100 WBC (0.0-0.2); Platelet Count 320 K/mm3 (150-400); RDW Coefficient Variation 14.0 % (11.7-14.2); RDW Standard Deviation 45.5 fL (35.1-46.3)
[2025-06-09 10:15] LABS: Albumin, Blood 3.5 g/dL (3.4-5.0); Anion Gap 9 mmol/L (3-11); Blood Urea Nitrogen 11 mg/dL (8-24); CO2, Blood 25 mmol/L (21-32); Calcium, Blood 9.0 mg/dL (8.5-10.1); Chloride, Blood 106 mmol/L (98-108); Creatinine, Blood 0.86 mg/dL (0.40-1.00); Follicle Stimulating Hormone 13.50 mIU/ml; Glucose, Blood 84 mg/dL (70-99); Phosphorus, Blood 3.2 mg/dL (2.5-4.9); Potassium, Blood 3.5 mmol/L (3.5-5.5); Sodium, Blood 136 mmol/L (136-145); Thyroid Stimulating Hormone 1.810 uIU/mL (0.360-4.800); Uric Acid, Blood 4.7 mg/dL (2.6-6.0)
[2025-06-09 10:21] LABS: Cortisol, AM 5.7 ug/dL (6.7-22.6)
[2025-06-09 10:29] LABS: Parathyroid Hormone, Intact 33.0 pg/mL (12-88)
[2025-06-09 12:59] LABS: Creatinine, Urine Random 34.8 mg/dL (27.00-270.00); Protein, Urine Random 5.7 mg/dL (0.0-11.9); Protein/Creat Ratio, Ur Random 0.2
[2025-06-11 01:29] LABS: ESTRADIOL BY IMMUNOASSAY 109.6 pg/mL
[2025-06-11 09:33] LABS: SEX HORMONE BINDING GLOBULIN 195 nmol/L (17-125)
[2025-06-13 16:39] LABS: CORTISOL, FREE BY ED/LC-MS/MS 0.22 ug/dL
[2025-06-16 03:14] LABS: TESTOSTERONE BY MASS SPEC 86 ng/dL (5-32); TESTOSTERONE, FREE MASS SPEC 4.1 pg/mL (0.6-3.8)
== END 2025-06-09 11:43 | disposition home or self-care (01) ==
LOC: ATC 00:19
PROVIDERS: Internal Medicine; Nurse Practitioner Family
DX: Z79.899 Other long term (current) drug therapy (principal); M06.09 Rheumatoid arthritis without rheumatoid factor, multiple sites; I10 Essential (primary) hypertension; Z88.8 Allergy status to other drugs, medicaments and biological substances
CPT/HCPCS: 36415; 80069; 82306; 82530; 82533; 82570; 82626; 82670; 83001; 83970; 84144; 84156; 84270; 84402; 84403; 84443; 84550; 85027; 96413; 96415; A9270; J1200; J7050; Q5103

== ENCOUNTER 2025-06-23 11:55 | Day surgery (SDC) | payer BC ==
[2025-06-23] MEDS ORDERED: NS 1,000 ML IV SCH (13:15)
[2025-06-23 15:34] VITALS: BP 138/83
[2025-06-23] MEDS ORDERED: TESTOSTERONE60 GM TOP (17:25)
[2025-06-23] MEDS ORDERED: THREONINE PO (17:42)
== END 2025-06-23 17:35 | disposition home or self-care (01) ==
LOC: ATC 11:55
DX: E86.9 Volume depletion, unspecified (principal); C64.9 Malignant neoplasm of unspecified kidney, except renal pelvis; I10 Essential (primary) hypertension; Z88.8 Allergy status to other drugs, medicaments and biological substances
CPT/HCPCS: 96360; 96361; 99211; J7030

== ENCOUNTER 2025-06-26 01:03 | Day surgery (SDC) | payer BC ==
[~2025-06-26 01:03] MED LIST changes: +TESTOSTERONE60 GM TOP; +THREONINE PO
[2025-06-26] MEDS ORDERED: NS 2,000 ML IV SCH (07:20)
[2025-06-26 15:32] VITALS: BP 151/85
== END 2025-06-26 16:08 | disposition home or self-care (01) ==
LOC: ATC 01:03
DX: I12.9 Hypertensive chronic kidney disease with stage 1 through stage 4 chronic kidney disease, or unspecified chronic kidney disease (principal); N18.9 Chronic kidney disease, unspecified; Z79.899 Other long term (current) drug therapy; Z88.8 Allergy status to other drugs, medicaments and biological substances
CPT/HCPCS: 96360; 96361; J7030

== ENCOUNTER 2025-07-19 00:30 | Day surgery (SDC) | payer BC ==
[2025-07-19] MEDS ORDERED: DiphenhydrAMINE HCl 50 MG/ML 1ML Vial IV SCH (06:00)
[2025-07-19] MEDS ORDERED: NS 1,000 ML IV SCH (07:15)
[2025-07-19 15:34] VITALS: BP 185/70
== END 2025-07-19 15:40 | disposition home or self-care (01) ==
LOC: ATC 00:30
DX: M06.09 Rheumatoid arthritis without rheumatoid factor, multiple sites (principal); Z88.8 Allergy status to other drugs, medicaments and biological substances
CPT/HCPCS: 96360; 96361; J7030

== ENCOUNTER 2025-07-27 09:01 | Day surgery (SDC) | payer BC ==
[~2025-07-27 09:01] MED LIST changes: +NS 1,000 ML IV SCH
[2025-07-27 14:40] VITALS: BP 166/88
== END 2025-07-27 16:40 | disposition home or self-care (01) ==
LOC: ATC 09:01
DX: E86.9 Volume depletion, unspecified (principal); N18.9 Chronic kidney disease, unspecified; I12.9 Hypertensive chronic kidney disease with stage 1 through stage 4 chronic kidney disease, or unspecified chronic kidney disease; C64.9 Malignant neoplasm of unspecified kidney, except renal pelvis; M06.00 Rheumatoid arthritis without rheumatoid factor, unspecified site; Z79.899 Other long term (current) drug therapy; Z88.8 Allergy status to other drugs, medicaments and biological substances
CPT/HCPCS: 96360; 96361; J7030